=== PATIENT | female | born 1990 | race Caucasian/White ===

== ENCOUNTER 2017-08-13 03:04 | Emergency (ER) | payer OTHER, MEDICAID | END 2017-08-13 03:41 | disposition home or self-care (01) | LOC: E/R 03:04 | DX: F10.920 Alcohol use, unspecified with intoxication, uncomplicated (principal); F17.210 Nicotine dependence, cigarettes, uncomplicated; R40.2142 Coma scale, eyes open, spontaneous, at arrival to emergency department; R40.2252 Coma scale, best verbal response, oriented, at arrival to emergency department; R40.2362 Coma scale, best motor response, obeys commands, at arrival to emergency department; Z02.89 Encounter for other administrative examinations | CPT/HCPCS: 99283 ==